=== PATIENT | female | born 1945 | race Caucasian/White ===

== ENCOUNTER 2017-07-03 12:29 | Day surgery (SDC) | payer OTHER ==
[~2017-07-03 12:29] MED LIST: ABILIFY5 MG; ABILIFY5 MG PO; ACTOS15 MG PO; ADVAIR 100/501 DISK IH; ADVAIR 500-501 EACH IH; ADVAIR 500/501 DISK IH; ALBUTEROL2.5 MG/3 M IH; AMITIZA24 MICROGR PO; APPEAREX2500 MCG PO; ARICEPT10 MG PO; ATORVASTATIN CA20 MG PO; AVENTYL,PAMELOR25 MG PO; AVINZA PO; AVINZA120 MG PO; Aricept PO; Ascorbic Acid,Ester- PO; Atorvastatin Calcium PO; BACTRIM,SEPT1 TABLE1 PO; BACTRIM,SEPT1 TABLET PO; BIOTIN 5000MCG PO; BIOTIN2500 MCG PO; BISAC-EVAC10 MG PR; BISACODYL5 MG PO; BUDEPRION XL300 MG PO; BUPROPION XL300 MG PO; Biotin PO; CARDIZEM CD240 MG PO; CARTIA XT240 MG PO; CENTRUM SILV1 TABLE1 PO; CENTRUM SILVER1 EAC4 PO; CONCERTA36 MG; CONCERTA36 MG PO; CYMBALTA30 MG PO; Cardizem CD,Cartia X PO; Cipro PO; Concerta PO; DEXEDRINE15 MG PO; DIAZEPAM5 MG PO; DILTIA XT240 MG PO; DONEPEZIL HCL10 MG PO; DULCOLAX5 MG PO; DURAGESIC50 MCG TD; ENABLEX15 MG PO; ENALAPRIL MALEAT5 MG; ENDOCET 5-3251 EACH PO; ERY-TAB500 MG PO; ERYTHROCIN BAS250 MG PO; ERYTHROCIN STE500 MG; FENTANYL1 EAC4 TD; FIORICET,ESG1 TABLET PO; FLEXERIL5 MG PO; FOLIC ACID0.4 MG PO; Folic Acid PO; KEFLEX500 MG PO; LEVOTHROID137 MCG PO; LEVOTHYROXINE112 MCG PO; LIORESAL10 MG PO; LIPITOR20 MG PO; LIPITOR40 MG PO; LYRICA100 MG PO; LYRICA150 MG; LYRICA150 MG PO; LYRICA50 MG PO; Levaquin PO; Levothroid,Synthroid PO; MAG-OX400 M1 PO; MAG-OX400 MG; MAGNESIUM250 MG PO; METHADONE10 MG PO; METHADONE5 MG PO; METHYLPHENIDATE10 M1 PO; MORPHINE SULFAT15 M1 PO; MUCUS ER600 MG PO; MULTIVITAMIN1 EAC2 PO; MYSOLINE250 MG PO; MYSOLINE50 MG PO; Maalox, Mylanta PO; NAMENDA5 MG PO; NEXIUM40 MG PO; NORTRIPTYLINE H50 MG PO; Namenda PO; OS-CAL 500+D C1 EAC1 PO; OXYBUTYNIN CHLOR5 MG PO; OXYCONTIN10 MG PO; OxyCONTIN PO; PERCOCET 5/31 TABLET PO; PERCOCET 7.51 TABLET PO; PHENOBARBITAL32.4 MG PO; PHILLIPS' COLO1 EACH PO; PREMARIN1.25 MG PO; PRIMIDONE250 MG PO; PROPRANOLOL HCL80 MG PO; Proventil,Ventolin H IH; QUALAQUIN324 MG PO; RESTASIS 01 DROP/0.4 BOTH EYES; SERTRALINE HCL100 MG PO; SINGULAIR10 MG PO; SPECTRAVITE SE1 EACH PO; SPECTRAVITE1 EAC1 PO; SPIRIVA RESPIMAT4 GM IH; SPIRIVA1 INHALATI IH; SUPER B COM1 CAPSULE PO; SUPER B COMP1 TABLET PO; SUPER B WITH V1 EACH PO; SYNTHROID137 MCG PO; Singulair PO; THERAGRAN1 TABLET PO; TRAMADOL HCL50 MG PO; ULTRAM ER300 MG PO; VALIUM5 MG PO; VENTOLIN HFA18 GM IH; VICTOZA 2-0.6 MG/0.1 SC; VICTOZA0.6 MG/0.1 SC; VIGAMOX 0.60 DROP/3 RIGHT EYE; VITAMIN B-125000 MC1 PO; VITAMIN B-6100 MG PO; VITAMIN C500 M1 PO; VITAMIN D1000 UNIT PO; VITAMIN D32000 UNI1 PO; VITAMIN D400 UNIT PO; VITAMIN D5000 UNI1 PO; Victoza SC; Vitamin B Complex PO; WELLBUTRIN XL150 MG PO; Wellbutrin SR PO; predniSONE PO
== END 2017-07-03 14:30 | disposition home or self-care (01) ==
LOC: PAIN 12:29
DX: M47.26 Other spondylosis with radiculopathy, lumbar region (principal); M51.16 Intervertebral disc disorders with radiculopathy, lumbar region; M48.061 Spinal stenosis, lumbar region without neurogenic claudication; M96.1 Postlaminectomy syndrome, not elsewhere classified; M47.812 Spondylosis without myelopathy or radiculopathy, cervical region; J44.9 Chronic obstructive pulmonary disease, unspecified; F41.8 Other specified anxiety disorders; E11.9 Type 2 diabetes mellitus without complications; K21.9 Gastro-esophageal reflux disease without esophagitis; E78.5 Hyperlipidemia, unspecified; I10 Essential (primary) hypertension; E03.9 Hypothyroidism, unspecified; D50.9 Iron deficiency anemia, unspecified; Z87.891 Personal history of nicotine dependence
CPT/HCPCS: J1030; J2250; J3010; S0020

== ENCOUNTER 2017-07-11 11:43 | Day surgery (SDC) | payer OTHER ==
[~2017-07-11] VITALS: Ht 154.9 cm; Wt 64.4 kg
== END 2017-07-11 13:56 | disposition home or self-care (01) ==
LOC: PAIN 11:43
DX: M47.816 Spondylosis without myelopathy or radiculopathy, lumbar region (principal); M51.36 Other intervertebral disc degeneration, lumbar region; M54.5 Low back pain; G89.29 Other chronic pain; M48.061 Spinal stenosis, lumbar region without neurogenic claudication; I10 Essential (primary) hypertension; E03.9 Hypothyroidism, unspecified; J44.9 Chronic obstructive pulmonary disease, unspecified; R01.1 Cardiac murmur, unspecified; Z87.891 Personal history of nicotine dependence
CPT/HCPCS: J1030; J2250; J3010; S0020

== ENCOUNTER 2017-09-11 06:54 | Day surgery (SDC) | payer OTHER ==
[~2017-09-11] VITALS: Ht 154.9 cm; Wt 63.5 kg
[~2017-09-11 06:54] MED LIST changes: +RAYOS5 MG PO
== END 2017-09-11 08:30 | disposition home or self-care (01) ==
LOC: PAIN 06:54 → SDC 07:30 → PAIN 08:30
PROC: B01B1ZZ Fluoroscopy of Spinal Cord using Low Osmolar Contrast (ICD-10-PCS; principal; 2017-09-11)
PROC: 3E0R3BZ Introduction of Anesthetic Agent into Spinal Canal, Percutaneous Approach (ICD-10-PCS; principal; 2017-09-11)
PROC: 3E0R33Z Introduction of Anti-inflammatory into Spinal Canal, Percutaneous Approach (ICD-10-PCS; principal; 2017-09-11)
DX: M54.16 Radiculopathy, lumbar region (principal); M47.816 Spondylosis without myelopathy or radiculopathy, lumbar region; M48.02 Spinal stenosis, cervical region; M47.812 Spondylosis without myelopathy or radiculopathy, cervical region; M96.1 Postlaminectomy syndrome, not elsewhere classified; J44.9 Chronic obstructive pulmonary disease, unspecified; I10 Essential (primary) hypertension; E78.5 Hyperlipidemia, unspecified; E03.9 Hypothyroidism, unspecified; K21.9 Gastro-esophageal reflux disease without esophagitis; M25.552 Pain in left hip; Z87.891 Personal history of nicotine dependence
CPT/HCPCS: J1030; J1100; J2250; J3010; S0020

== ENCOUNTER 2017-10-09 08:25 | Day surgery (SDC) | payer OTHER ==
[~2017-10-09] VITALS: Ht 154.9 cm; Wt 64.9 kg
== END 2017-10-09 10:42 | disposition home or self-care (01) ==
LOC: PAIN 08:25 → SDC 09:00 → PAIN 09:00
DX: M54.16 Radiculopathy, lumbar region (principal); M96.1 Postlaminectomy syndrome, not elsewhere classified; Z79.891 Long term (current) use of opiate analgesic; M47.816 Spondylosis without myelopathy or radiculopathy, lumbar region; E11.42 Type 2 diabetes mellitus with diabetic polyneuropathy; K21.9 Gastro-esophageal reflux disease without esophagitis; E03.9 Hypothyroidism, unspecified; D50.9 Iron deficiency anemia, unspecified; K58.9 Irritable bowel syndrome, unspecified; R01.1 Cardiac murmur, unspecified; Z96.659 Presence of unspecified artificial knee joint; Z88.5 Allergy status to narcotic agent
CPT/HCPCS: 94640; J1100; J2250

== ENCOUNTER 2018-01-24 14:53 | Emergency (ER) | payer OTHER ==
[~2018-01-24] VITALS: Ht 167.6 cm; Wt 84.4 kg
[2018-01-24 15:20] LABS: BASOPHIL (%) 0.6 % (0-1); BASOPHIL COUNT 0.1 K/uL (0-0.1); EOSINOPHIL (%) 0.3 % (0-5); HEMATOCRIT 37.1 % (36.0-46.0); IMMATURE GRANULOCYTE (%) 0.4 % (0.0-0.7); LYMPHOCYTE COUNT 1.5 K/uL (1.0-2.8); MCH 28.2 PG (29.0-34.0); MCHC 32.3 G/DL (30.0-36.0); MCV 87.3 FL (83-99); MONOCYTE (%) 11.4 % (3-12); MONOCYTE COUNT 1.3 K/uL (0-0.8); NEUTROPHIL (%) 74.3 % (45-76); NEUTROPHIL COUNT 8.6 K/uL (1.8-6.4); PLATELET COUNT 240 K/uL (156-360); RBC DIS.WIDTH-CV 14.8 % (11.8-14.6); RBC DIS.WIDTH-SD 47.3 % (39-53); RED BLOOD COUNT 4.25 M/uL (3.80-5.20); WHITE BLOOD COUNT 11.7 K/uL (4.1-10.2)
[2018-01-24 15:28] LABS: INTER. NORMALIZED RATIO 1.1
[2018-01-24 15:31] LABS: PTT 27.2 SEC (25-37)
[2018-01-24 15:32] LABS: AMYLASE 14 IU/L (1-118); CHLORIDE 102 mEq/L (99-109); POTASSIUM 4.5 mEq/L (3.7-5.4); SODIUM 139 mEq/L (136-147)
[2018-01-24 15:34] LABS: GLUCOSE 86 mg/dL (70-99)
[2018-01-24 15:37] LABS: SERUM ETHYL ALCOHOL < 10 mg/dL
[2018-01-24 15:38] LABS: CREATININE 0.8 mg/dL (0.6-1.3); GFR ESTIMATE (CALCULATED) > 59 mL/min/
[2018-01-24 15:39] LABS: UREA NITROGEN (BUN) 15 mg/dL (9-23)
[2018-01-24 15:41] LABS: LIPASE 3 U/L (1.0-51.0)
[2018-01-24 16:31] LABS: TROP-I INTERPRETATION NEGATIVE; TROPONIN-I < 0.01 ng/mL (0.0-0.30)
[2018-01-24 16:43] LABS: APPEARANCE CLEAR ((CLEAR)); BILIRUBIN NEGATIVE; BLOOD NEGATIVE; COLOR YELLOW ((YELLOW)); GLUCOSE (STRIP) NEGATIVE; KETONES 5; LEUKOCYTES NEGATIVE; NITRITE NEGATIVE; PROTEIN (STRIP) NEGATIVE; SPECIFIC GRAVITY 1.033 (1.000-1.030); UCUL ADDED? NO; UROBILINOGEN 0.2 MG/DL (0.2-1.0)
[2018-01-24 16:57] LABS: AMPHETAMINE NEGATIVE (500 ng/mL); BARBITURATES PRESUMPTIVE POSITIVE (200 ng/mL); BENZODIAZEPINES NEGATIVE (150 ng/mL); BUPRENORPHINE NEGATIVE (10 ng/mL); COCAINE NEGATIVE (150 ng/mL); METHADONE NEGATIVE (200 ng/mL); METHAMPHETAMINE NEGATIVE (500 ng/mL); OPIATES (MORPHINE) PRESUMPTIVE POSITIVE (100 ng/mL); OXYCODONE NEGATIVE (100 ng/mL); PHENCYCLIDINE NEGATIVE (25 ng/mL); PROPOXYPHENE NEGATIVE (300 ng/mL); THC CANNABINOIDS NEGATIVE (50 ng/mL); TRICYCLIC ANTIDEPRESSANTS NEGATIVE (300 ng/mL)
== END 2018-01-24 19:50 | disposition home or self-care (01) ==
LOC: TRA 14:53
PROVIDERS: Emergency Medicine
DX: S01.112A Laceration without foreign body of left eyelid and periocular area, initial encounter (principal); S82.62XA Displaced fracture of lateral malleolus of left fibula, initial encounter for closed fracture; N63.10 Unspecified lump in the right breast, unspecified quadrant; W18.30XA Fall on same level, unspecified, initial encounter; Y93.H2 Activity, gardening and landscaping; J44.9 Chronic obstructive pulmonary disease, unspecified; G89.29 Other chronic pain
CPT/HCPCS: 70450; 70486; 71260; 72125; 73610; 74177; 80048; 81003; 82150; 83690; 84484; 84999; 85025; 85610; 85730; 86850; 86900; 86901; 93005; 99281; 99285; G0480